=== PATIENT | female | born 2000 | race Caucasian/White ===

== ENCOUNTER 2019-11-22 02:33 | Emergency (ER) | payer SELFPAY ==
[2019-11-22] MEDS ORDERED: SODIUM CHLORIDE 0.9% 1000ML 2,000 ML IVS ONE (02:44)
[2019-11-22] MEDS ORDERED: ONDANSETRON INJ 4 MG/2 ML VIAL IV ONE (02:44)
[2019-11-22] MEDS ORDERED: METOPROLOL TARTRATE INJ 5 MG/5 ML VIAL IV ONE (02:52)
[2019-11-22] MEDS ORDERED: MAGNESIUM SULFATE INJ 2 GM in SODIUM CHLORIDE 0.9% 100ML 100 ML IVPB ONE (03:09)
--- NOTE | 2019-11-22 03:10 | RAD ---
EXAM DESCRIPTION: XR Chest,1 View CLINICAL HISTORY: SOB TECHNIQUE: Single frontal view of the chest is submitted. COMPARISON: None available for comparison FINDINGS: Heart: The cardiothoracic silhouette is within normal limits. Lungs: Minimal patchy bilateral perihilar opacities. Mediastinum: Unremarkable Pleura: No appreciable effusion. No pneumothorax. Bones: Intact Upper abdomen: Unremarkable Other: Bilateral nipple piercings. IMPRESSION: Minimal patchy bilateral perihilar opacities (atelectasis and/or infiltrate). Electronically signed by: Cate Ricci MD 11/22/2019 3:09 AM CDT
[2019-11-22] MEDS ORDERED: MAGNESIUM SULFATE PREMIX 2GM 50 ML IVPB ONE (03:15)
--- NOTE | 2019-11-22 03:16 | ED.PDOC ---
History of Present Illness - General Additional Information: Patient is a 19-year-old female who presents to the ED with her sister with chief complaint of seizure-like activity. Patient turned 19 years old on November 18 and has been celebrating with friends. Tonight patient has been drinking a seltzer type alcoholic beverage and vodka shots per sister. Patient went to sleep tonight and then was noted to have what sister describes as seizure-like activity in the bed In between her seizures patient would have rhythmic jerking mannerisms. Sister put patient in the car and brought her to the ED and a similar seizure type activity occurred in the car. Sister and patient deny ingestion of energy type drinks such as red bull tonight. They deny any substance abuse other than alcohol. This is never happened to the patient before, she is otherwise healthy. Patient has no known heart problems. Patient takes no psychiatric medications or prescription stimulant medications. <Renzo Scott - Last Filed: 11/22/19 06:47> <Henri Wiggins - Last Filed: 11/22/19 07:30> - General Chief Complaint: General Stated Complaint: having seizures Time Seen by Provider: 11/22/19 02:42 - History of Present Illness Allergies/Adverse Reactions: Allergies NO KNOWN ALLERGY Allergy (Verified 11/22/19 02:55) Review of Systems - Review of Systems Constitutional: Denies: chills, fever Respiratory: Denies: cough, short of breath Cardiology: States: palpitations. Denies: chest pain Gastrointestinal/Abdominal: States: nausea. Denies: abdominal pain, diarrhea, vomiting Musculoskeletal: States: muscle pain Skin: Denies: rash Neurological: States: paresthesia, tingling, tremors. Denies: anxiety, depressed All other Systems: Reviewed and Negative <Renzo Scott - Last Filed: 11/22/19 06:47> Past Medical History (General) - Patient Medical History Hx Seizures: No Hx Stroke: No Hx Dementia: No Hx Asthma: No Hx of COPD: No Hx Cardiac Disorders: No Hx Congestive Heart Failure: No Hx Pacemaker: No Hx Hypertension: No Hx Thyroid Disease: No Hx Diabetes: No Hx Gastroesophageal Reflux: No Hx Renal Disease: No Hx Cancer: No Hx of HIV: No Hx Hepatitis C: No Hx MRSA: No Surgical History: other - Vaccination History Hx Tetanus, Diphtheria Vaccination: Yes Hx Influenza Vaccination: No Hx Pneumococcal Vaccination: No Immunizations Up to Date: Yes - Social History Hx Tobacco Use: No Hx Chewing Tobacco Use: No Hx Alcohol Use: Yes Hx Substance Use: No Hx Substance Use Treatment: No Hx Depression: No Feels Threatened In Home Enviroment: No Feels Threatened In a Relationship: No Hx Physical Abuse: No Hx Emotional Abuse: No Hx Suspected Abuse: No - Activities of Daily Living Hospice Agency (if applicable):: None - Female History Patient is a Female of Child Bearing Age (10 -59 yrs old): Yes Patient : No <Renzo Scott - Navid Filed: 11/22/19 06:47> Family Medical History - Family History Mother Family History: Unknown <Renzo Scott Filed: 11/22/19 06:47> Physical Exam - Physical Exam General Appearance: Agitated, Alert, Anxious, Obvious distress, Restless, Well Developed, Well Nourished, Other - Patient with rhythmic jerking movements in the bed. Patient cannot sit still. Her head abruptly moves from side to side. Eye Exam: bilateral normal - 3 mm, bilateral other - Patient with horizontal nystagmus Neck: supple Respiratory: chest non-tender, lungs clear, normal breath sounds, no respiratory distress, no accessory muscle use Cardiovascular/Chest: normal peripheral pulses, no edema, no gallop, no JVD, no murmur, tachycardia Peripheral Pulses: radial,right: 2+, radial,left: 2+ Gastrointestinal/Abdominal: normal bowel sounds, non tender, soft Back Exam: normal inspection Extremity: normal range of motion, non-tender, no pedal edema Neurologic: medication tech II-XII nml as tested, no motor/sensory deficits, oriented x 3 - Patient appears to be slightly confused but is able to answer simple questions and follow commands. Skin Exam: normal color, warm/dry <Renzo Scott Filed: 11/22/19 06:47> Progress - Progress Progress: 11/22/19 03:23 Differential diagnosis includes but is not limited to acute alcohol intoxication, substance abuse, amphetamine use, electrolyte disorder, seizure. 11/22/19 03:25 Patient presented in distress with tachycardia in the 150s and dystonic-like jerking movements. Patient's tachycardia was thought to be substance induced and not SVT. EKG obtained shows a rate of 147 with prolonged QT. Patient given metoprolol to address the rate and prolonged QT, and she was given magnesium empirically for the prolonged QT. Patient is very agitated and was given Ativan. She has been bolused with 2 L normal saline. Patient's rate now has come down into the 110s but patient continues with the jerking movements. Her blood pressure is stable. 11/22/19 04:13 Patient reassessed and is doing much better at this time. She is now calm and her rhythmic jerking has all but stopped. Her heart rate is in the low 100s. Patient's mother is in the room and together with patient we have discussed results. Repeat EKG shows resolution of prolonged QT. CT is complete but results pending. Will observe patient for another 2 hours and if she remains stable anticipate DC home with her mother. 11/22/19 05:29 Patient reassessed. She is still with these occasional jerking movements and she remains confused. Patient's head CT is unremarkable. Her heart rate is in the low 100s. Patient appears to be having a dystonic type reaction to what ever she has consumed this evening. With normal lab testing and CT, clinically I suspect that the symptoms will gradually wear off over time but mother requested patient be transferred to a higher level facility, I discussed with mother that I would recommend that patient be transferred to a facility with toxicology and patient requests transfer to [facility]. 11/22/19 06:47 We discussed with [facility] transfer line and [facility] does not have toxicology. Transfer request placed to [facility] and we are still awaiting reply from them. Patient discussed with and turned over to Dr. Wiggins for final disposition. - EKG/XRAY/CT Comments: Sinus tachycardia rate of 147, normal axis, prolonged QT, nonspecific ST an <Renzo Scott - Last Filed: 11/22/19 06:47> - Progress Progress: 11/22/19 07:19 Pt is a 19 yo female with no PMH. Presents to ED for seizure like activity with no PMH of seizures. Had alcohol last night, but family denies possibility of taking other drugs/medications. initially tachycaardic which improved with IVF. Has prolonged QT on EKG. Continues to have repetitive jerking movements and not waking up and not conversational. Will plan to transfer for neurology evaluation and possible EEG to evaluate for seizure, prolonged postictal state. CT Brain unremarkable. D/W Maritza Acosta, hospitalist [facility], will accept transfer. - Results/Orders Results/Orders: 11/22/19 02:42 IV:Start .ONCE 11/22/19 02:45 EKG .ONCE 11/22/19 03:17 CKISO [CREATINE KINASE ISOENZYMES] Stat 11/22/19 03:30 EKG .ONCE Laboratory Results - last 24 hr 11/22/19 11/22/19 11/22/19 02:38 02:38 02:38 WBC 6.4 RBC 4.66 Hgb 14.3 Hct 41.1 MCV 88.1 MCH 30.8 MCHC 34.9 RDW 12.3 Plt Count 318 MPV 7.4 Absolute Neuts (auto) 2.70 Absolute Lymphs (auto) 3.10 Absolute Monos (auto) 0.40 Absolute Eos (auto) 0.10 Absolute Basos (auto) 0.00 Neutrophils % 42.5 Lymphocytes % 48.9 Monocytes % 6.9 Eosinophils % 1.0 Basophils % 0.7 PT 9.5 INR < 1.00 Sodium 142 Potassium 3.6 Chloride 111 Carbon Dioxide 20 L Anion Gap 14.6 BUN 9 Creatinine 0.64 BUN/Creatinine Ratio 14.1 POC Glucose Random Glucose 93 Serum Osmolality 281.5 Lactic Acid Calcium 8.7 Magnesium Total Bilirubin 0.4 AST 15 ALT 12 Alkaline Phosphatase 52 Troponin I Serum Total Protein 7.0 Albumin 4.2 Globulin 2.8 Albumin/Globulin Ratio 1.5 Lipase Urine Color Urine Appearance Urine pH Ur Specific [place] Urine Protein Urine Glucose (UA) Urine Ketones Urine Blood Urine Nitrite Urine Bilirubin Urine Urobilinogen Ur Leukocyte Esterase Urine RBC Urine WBC Ur Epithelial Cells Urine Bacteria Urine HCG, Qual Salicylates Urine Opiates Screen Acetaminophen Urine Barbiturates Ur Phencyclidine Scrn U Amphetamin/Meth Scrn U Benzodiazepines Scrn U Cocaine Metab Screen U Cannabinoids Screen Ethyl Alcohol 11/22/19 11/22/19 11/22/19 02:38 02:38 02:38 WBC RBC Hgb Hct MCV MCH MCHC RDW Plt Count MPV Absolute Neuts (auto) Absolute Lymphs (auto) Absolute Monos (auto) Absolute Eos (auto) Absolute Basos (auto) Neutrophils % Lymphocytes % Monocytes % Eosinophils % Basophils % PT INR Sodium Potassium Chloride Carbon Dioxide Anion Gap BUN Creatinine BUN/Creatinine Ratio POC Glucose Random Glucose Serum Osmolality Lactic Acid 3.0 H* Calcium Magnesium Total Bilirubin AST ALT Alkaline Phosphatase Troponin I < 0.02 Serum Total Protein Albumin Globulin Albumin/Globulin Ratio Lipase 31 Urine Color Urine Appearance Urine pH Ur Specific [place] Urine Protein Urine Glucose (UA) Urine Ketones Urine Blood Urine Nitrite Urine Bilirubin Urine Urobilinogen Ur Leukocyte Esterase Urine RBC Urine WBC Ur Epithelial Cells Urine Bacteria Urine HCG, Qual Salicylates Urine Opiates Screen Acetaminophen Urine Barbiturates Ur Phencyclidine Scrn U Amphetamin/Meth Scrn U Benzodiazepines Scrn U Cocaine Metab Screen U Cannabinoids Screen Ethyl Alcohol 11/22/19 11/22/19 11/22/19 02:38 02:38 02:38 WBC RBC Hgb Hct MCV MCH MCHC RDW Plt Count MPV Absolute Neuts (auto) Absolute Lymphs (auto) Absolute Monos (auto) Absolute Eos (auto) Absolute Basos (auto) Neutrophils % Lymphocytes % Monocytes % Eosinophils % Basophils % PT INR Sodium Potassium Chloride Carbon Dioxide Anion Gap BUN Creatinine BUN/Creatinine Ratio POC Glucose Random Glucose Serum Osmolality Lactic Acid Calcium Magnesium 2.1 Total Bilirubin AST ALT Alkaline Phosphatase Troponin I Serum Total Protein Albumin Globulin Albumin/Globulin Ratio Lipase Urine Color Urine Appearance Urine pH Ur Specific [place] Urine Protein Urine Glucose (UA) Urine Ketones Urine Blood Urine Nitrite Urine Bilirubin Urine Urobilinogen Ur Leukocyte Esterase Urine RBC Urine WBC Ur Epithelial Cells Urine Bacteria Urine HCG, Qual Salicylates < 4.0 Urine Opiates Screen Acetaminophen < 10.0 L Urine Barbiturates Ur Phencyclidine Scrn U Amphetamin/Meth Scrn U Benzodiazepines Scrn U Cocaine Metab Screen U Cannabinoids Screen Ethyl Alcohol 208.10 H* 11/22/19 11/22/19 11/22/19 02:55 02:55 02:55 WBC RBC Hgb Hct MCV MCH MCHC RDW Plt Count MPV Absolute Neuts (auto) Absolute Lymphs (auto) Absolute Monos (auto) Absolute Eos (auto) Absolute Basos (auto) Neutrophils % Lymphocytes % Monocytes % Eosinophils % Basophils % PT INR Sodium Potassium Chloride Carbon Dioxide Anion Gap BUN Creatinine BUN/Creatinine Ratio POC Glucose Random Glucose Serum Osmolality Lactic Acid Calcium Magnesium Total Bilirubin AST ALT Alkaline Phosphatase Troponin I Serum Total Protein Albumin Globulin Albumin/Globulin Ratio Lipase Urine Color Yellow Urine Appearance Clear Urine pH 6.0 Ur Specific [place] <= 1.005 Urine Protein Negative Urine Glucose (UA) Negative Urine Ketones Negative Urine Blood Negative Urine Nitrite Negative Urine Bilirubin Negative Urine Urobilinogen 0.2 Ur Leukocyte Esterase Negative Urine RBC 0 Urine WBC 0 Ur Epithelial Cells 1-3 Urine Bacteria Rare Urine HCG, Qual Negative Salicylates Urine Opiates Screen Negative Acetaminophen Urine Barbiturates Negative Ur Phencyclidine Scrn Negative U Amphetamin/Meth Scrn Negative U Benzodiazepines Scrn Negative U Cocaine Metab Screen Negative U Cannabinoids Screen Negative Ethyl Alcohol 11/22/19 11/22/19 03:09 04:25 WBC RBC Hgb Hct MCV MCH MCHC RDW Plt Count MPV Absolute Neuts (auto) Absolute Lymphs (auto) Absolute Monos (auto) Absolute Eos (auto) Absolute Basos (auto) Neutrophils % Lymphocytes % Monocytes % Eosinophils % Basophils % PT INR Sodium Potassium Chloride Carbon Dioxide Anion Gap BUN Creatinine BUN/Creatinine Ratio POC Glucose 90 Random Glucose Serum Osmolality Lactic Acid 1.6 Calcium Magnesium Total Bilirubin AST ALT Alkaline Phosphatase Troponin I Serum Total Protein Albumin Globulin Albumin/Globulin Ratio Lipase Urine Color Urine Appearance Urine pH Ur Specific [place] Urine Protein Urine Glucose (UA) Urine Ketones Urine Blood Urine Nitrite Urine Bilirubin Urine Urobilinogen Ur Leukocyte Esterase Urine RBC Urine WBC Ur Epithelial Cells Urine Bacteria Urine HCG, Qual Salicylates Urine Opiates Screen Acetaminophen Urine Barbiturates Ur Phencyclidine Scrn U Amphetamin/Meth Scrn U Benzodiazepines Scrn U Cocaine Metab Screen U Cannabinoids Screen Ethyl Alcohol CT BRAIN EXAM: CT head without contrast HISTORY: Seizure COMPARISON: None. TECHNIQUE: Head/brain axial images acquired without contrast. Coronal and sagittal reformats created. Exam performed according to departmental dose-optimization program which includes automated exposure control, adjustment of mA and/or kV according to patient size, and/or use of iterative reconstruction technique. FINDINGS: No midline shift, mass effect, intracranial hemorrhage, or hydrocephalus. Brain parenchyma unremarkable. No skull fracture. IMPRESSION: No CT evidence of acute intracranial abnormality. CHEST XRAY EXAM DESCRIPTION: XR Chest,1 View CLINICAL HISTORY: SOB TECHNIQUE: Single frontal view of the chest is submitted. COMPARISON: None available for comparison FINDINGS: Heart: The cardiothoracic silhouette is within normal limits. Lungs: Minimal patchy bilateral perihilar opacities. Mediastinum: Unremarkable Pleura: No appreciable effusion. No pneumothorax. Bones: Intact Upper abdomen: Unremarkable Other: Bilateral nipple piercings. IMPRESSION: Min imal patchy bilateral perihilar opacities (atelectasis and/or infiltrate). <Feliciano,Henri Aquilino - Last Filed: 11/22/19 07:30> Departure <Renzo Scott - Last Filed: 11/22/19 06:47> - Departure Time of Disposition: 07:24 <Henri Wiggins - Last Filed: 11/22/19 07:30> - Departure Clinical Impression: Prolonged Q-T interval on ECG, Acute dystonic reaction due to drugs Alcohol intoxication Qualifiers: Complication of substance-induced condition: with delirium Qualified Code(s): F10.921 - Alcohol use, unspecified with intoxication delirium Altered mental status Qualifiers: Altered mental status type: delirium Qualified Code(s): R41.0 - Disorientation, unspecified Disposition: Transfer to Hospital Condition: Fair Departure Forms: ED Discharge - Pt. Copy, Patient Portal Self Enrollment Transfer to Outside Facility - Transfer Information Decision to Transfer Date: 11/22/19 Decision to Transfer Time: 07:15 Reason for Transfer: required specialist not available Accepting Facility: [facility] <Henri Wiggins - Last Filed: 11/22/19 07:30>
--- NOTE | 2019-11-22 04:21 | CT ---
EXAM: CT head without contrast HISTORY: Seizure COMPARISON: None. TECHNIQUE: Head/brain axial images acquired without contrast. Coronal and sagittal reformats created. Exam performed according to departmental dose-optimization program which includes automated exposure control, adjustment of mA and/or kV according to patient size, and/or use of iterative reconstruction technique. FINDINGS: No midline shift, mass effect, intracranial hemorrhage, or hydrocephalus. Brain parenchyma unremarkable. No skull fracture. IMPRESSION: No CT evidence of acute intracranial abnormality. Electronically signed by: Luis Daniel Fish MD 11/22/2019 4:19 AM CDT
[2019-11-22 06:01] VITALS: TEMP 97.8
[2019-11-22 10:13] VITALS: BP 102/64; O2SAT 99
== END 2019-11-22 08:35 | disposition short-term general hospital (02) ==
LOC: ER 02:33
DX: F10.921 Alcohol use, unspecified with intoxication delirium (principal); R41.0 Disorientation, unspecified; R94.31 Abnormal electrocardiogram [ECG] [EKG]; R25.8 Other abnormal involuntary movements; R00.0 Tachycardia, unspecified
CPT/HCPCS: 70450; 71045; 80053; 80307; 80320; 80329; 81001; 81025; 82948; 83605; 83690; 83735; 84484; 85025; 85610; 93005; J2060; J2405; J3475; J7030